=== PATIENT | male | born 1965 | race Caucasian/White ===

== ENCOUNTER 2017-07-31 21:20 | Emergency (ER) | payer BC ==
--- NOTE | 2017-07-31 21:10 | EDM.PDOC ---
ED HPI GENERAL MEDICAL PROBLEM - General Stated Complaint: BY AMBULANCE, GENERAL Time Seen by Provider: 07/31/17 21:08 Source of Information: Reports: Family History Limitations: Reports: Altered Mental Status - History of Present Illness INITIAL COMMENTS - FREE TEXT/NARRATIVE: sister states pt was fine @ 3pm today, just checked him for dinner & found him unresponsive. was d/c from [facility] last for liver failure and pending transplant. had abd' tapped there. also gives h/o K @ 6.9 and also needed blood transfusion. - Related Data Allergies Allergy/AdvReac Type Severity Reaction Status Date / Time No Known Allergies Allergy Verified 07/31/17 21:53 Home Meds: Home Meds Insulin Aspart [NovoLOG] 180 unit SQ ASDIRECTED 01/23/16 [History] Furosemide [Furosemide] 40 mg PO DAILY 12/11/16 [History] Insulin Aspart [NovoLOG] 4 units SUBCUT ASDIRECTED 12/11/16 [History] Spironolactone [Aldactone] 25 mg PO DAILY 12/11/16 [History] Past Medical History Cardiovascular History: Reports: Heart Failure, High Cholesterol, Hypertension Gastrointestinal History: Reports: Cirrhosis (non-alcoholic) Other Gastrointestinal History: ascites Musculoskeletal History: Reports: Fracture Endocrine/Metabolic History: Reports: Diabetes, Type II, Obesity/BMI 30+ - Infectious Disease History Infectious Disease History: Reports: Chicken Pox - Past Surgical History HEENT Surgical History: Reports: Tonsillectomy Other GI Surgeries/Procedures: paracentesis Social & Family History - Family History Family Medical History: Noncontributory - Tobacco Use Smoking Status *Q: Never Smoker Second Hand Smoke Exposure: No - Caffeine Use Caffeine Use: Reports: None - Alcohol Use Days Per Week of Alcohol Use: 3 Number of Drinks Per Day: 3 Total Drinks Per Week: 9 - Recreational Drug Use Recreational Drug Use: No - Living Situation & Occupation Living situation: Reports: Occupation: Employed ED ROS GENERAL - Review of Systems Review Of Systems: ROS reveals no pertinent complaints other than HPI. - Physical Exam Exam: See Below Exam Limited By: Altered Mental Status General Appearance: Other (unresponsive but jerked his head away with corneal stimulation) Eye Exam: Bilateral Eye: PERRL (pupils ess ER @ 4mm) Ears: Normal External Exam, Normal Canal Throat/Mouth: No Airway Compromise Head Exam: Atraumatic Neck: Non-Tender, Full Range of Motion Respiratory/Chest: No Respiratory Distress, Lungs Clear, Normal Breath Sounds Cardiovascular: Regular Rate, Rhythm GI/Abdominal: No: Mass Neuro Exam (Abbreviated): Unresponsive Psychiatric: Other (unresponsive) Skin Exam: Warm, Dry, Normal Color Course - Vital Signs Last Recorded V/S: Last Vital Signs Temp 36.6 C 07/31/17 21:08 Pulse 81 07/31/17 21:08 Resp 16 07/31/17 21:08 BP 134/36 L 07/31/17 21:08 Pulse Ox 98 07/31/17 21:08 - Orders/Labs/Meds Labs: Laboratory Tests 07/31/17 07/31/17 07/31/17 Range/Units 21:20 21:20 21:20 WBC 6.9 (5.0-10.0) 10^3/uL RBC 2.00 L (4.6-6.2) 10^6/uL Hgb 6.3 L* (14.0-18.0) g/dL Hct 19.1 L* (40.0-54.0) % MCV 95.5 (80-100) fL MCH 31.5 (27.0-34.0) pg MCHC 33.0 (33.0-35.0) g/dL Plt Count 9 L* (150-450) 10^3/uL Neut % (Auto) 63.8 (42.2-75.2) % Lymph % (Auto) 21.8 (20.5-50.1) % Price % (Auto) 11.7 H (2-8) % Eos % (Auto) 2.6 (1.0-3.0) % Baso % (Auto) 0.1 (0.0-1.0) % Sodium 130 L (135-145) mmol/L Potassium 5.9 H (3.6-5.0) mmol/L Chloride 102 (101-111) mmol/L Carbon Dioxide 19.0 L (21.0-31.0) mmol/L Anion Gap 14.9 BUN 42 H (7-18) mg/dL Creatinine 1.5 H (0.6-1.3) mg/dL Est Cr Clr Drug Dosing 63.95 mL/min Estimated GFR (MDRD) 49 BUN/Creatinine Ratio 28.00 Glucose 105 (74-105) mg/dL Calcium 8.0 L (8.4-10.2) mg/dl Total Bilirubin 1.2 H (0.2-1.0) mg/dL AST 33 (10-42) IU/L ALT 24 (10-60) IU/L Alkaline Phosphatase 57 (42-121) IU/L Ammonia 334 H (11-35) umol/L Total Protein 5.6 L (6.7-8.2) g/dl Albumin 2.3 L (3.2-5.5) g/dl Globulin 3.3 Albumin/Globulin Ratio 0.70 - Re-Assessments/Exams Free Text/Narrative Re-Assessment/Exam: 07/31/17 22:[address] Velez @ who kindly accepted pt. Departure - Departure Time of Disposition: 22:07 Disposition: DC/Tfer to Acute Hospital 02 Condition: Fair Clinical Impression: Hypokalemia, Hyponatremia, Hepatorenal syndrome, Hyperammonemia, Unresponsive state - Discharge Information Forms: Interfacility Transfer EMTALA
[2017-07-31 21:27] VITALS: BP 134/36
--- NOTE | 2017-08-04 11:04 | EKG ---
07/31/2017 - SHELBY VALE - This 12-lead EKG, shows a normal sinus rhythm with a ventricular rate of 79. Normal axis, first degree AV block. Low voltage is seen throughout the limb leads. Poor R-wave progression. No acute ST-T wave changes. [facility] /[id number]
== END 2017-07-31 22:37 ==
LOC: DL.ED 21:20
DX: E87.6 Hypokalemia (principal); E87.1 Hypo-osmolality and hyponatremia; K76.7 Hepatorenal syndrome; E72.4 Disorders of ornithine metabolism; I11.0 Hypertensive heart disease with heart failure; I50.9 Heart failure, unspecified; E78.00 Pure hypercholesterolemia, unspecified; E11.9 Type 2 diabetes mellitus without complications; E66.9 Obesity, unspecified; Z79.4 Long term (current) use of insulin; Z79.899 Other long term (current) drug therapy
CPT/HCPCS: 36415; 80053; 82140; 85025; 99285

== ENCOUNTER 2017-10-04 15:53 | Emergency (ER) | payer BC ==
[2017-10-04 17:09] VITALS: BP 126/59
--- NOTE | 2017-10-04 17:57 | EDM.PDOC ---
ED HPI GENERAL MEDICAL PROBLEM - General Chief Complaint: Neuro Symptoms/Deficits Stated Complaint: CONFUSED [id number](SON) Time Seen by Provider: 10/04/17 17:35 Source of Information: Reports: Patient, Family History Limitations: Reports: No Limitations - History of Present Illness INITIAL COMMENTS - FREE TEXT/NARRATIVE: Patient presents to ER with family with increased confusion. States he missed a dose of lactulose. Concerned with blood sugars wondering if insulin pump is working. No fever, chills, chest pain, shortness of breath, nausea or vomiting. He has diarrhea from lactulose. He also has a history of liver cancer Onset: Today Location: Reports: Other (confusion) Quality: Reports: Ache Severity: Moderate Improves with: Reports: None Worsens with: Reports: None Associated Symptoms: Reports: No Other Symptoms - Related Data Allergies Allergy/AdvReac Type Severity Reaction Status Date / Time No Known Allergies Allergy Verified 09/05/17 10:51 Home Meds: Home Meds Insulin Aspart [NovoLOG] 180 unit SQ ASDIRECTED 01/23/16 [History] Bumetanide [Bumex] 3 mg PO BID 09/05/17 [History] Ciprofloxacin [Ciprofloxacin HCl] 500 mg PO WITHLUNCH 09/05/17 [History] Lactulose 20 gm PO TID 09/05/17 [History] Midodrine 10 mg PO TIDMEALS 09/05/17 [History] Pantoprazole Sodium 40 mg PO BIDMEALS 09/05/17 [History] Rifaximin [Xifaxan] 550 mg PO BID 09/05/17 [History] Spironolactone [Aldactone] 25 mg PO DAILY 10/04/17 [History] Past Medical History HEENT History: Reports: Hard of Hearing Cardiovascular History: Reports: None Respiratory History: Reports: None Gastrointestinal History: Reports: Cirrhosis, GI Bleed, Hiatal Hernia Other Gastrointestinal History: ascites Genitourinary History: Reports: Acute Renal Failure, Chronic Renal Insuffiency Musculoskeletal History: Reports: Fracture Neurological History: Reports: Brain Injury, Neuropathy, Diabetic Psychiatric History: Reports: Other (See Below) Other Psychiatric History: gets confused at times Endocrine/Metabolic History: Reports: Diabetes, Type II, Obesity/BMI 30+ Hematologic History: Reports: Anemia, Blood Transfusion(s) Immunologic History: Reports: None Oncologic (Cancer) History: Reports: Liver Dermatologic History: Reports: None - Infectious Disease History Infectious Disease History: Reports: None - Past Surgical History HEENT Surgical History: Reports: Tonsillectomy Cardiovascular Surgical History: Reports: None Respiratory Surgical History: Reports: None GI Surgical History: Reports: Abdominal paracentesis Male Surgical History: Reports: None Endocrine Surgical History: Reports: None Neurological Surgical History: Reports: None Musculoskeletal Surgical History: Reports: None Oncologic Surgical History: Reports: None Other Oncologic Surgeries/Procedures: Ablation Dermatological Surgical History: Reports: None Social & Family History - Family History Family Medical History: Noncontributory - Tobacco Use Smoking Status *Q: Never Smoker Second Hand Smoke Exposure: No - Caffeine Use Caffeine Use: Reports: None - Alcohol Use Days Per Week of Alcohol Use: 3 Number of Drinks Per Day: 3 Total Drinks Per Week: 9 - Recreational Drug Use Recreational Drug Use: No - Living Situation & Occupation Living situation: Reports: Occupation: Employed ED ROS GENERAL - Review of Systems Review Of Systems: ROS reveals no pertinent complaints other than HPI. ED EXAM, NEURO - Physical Exam Exam: See Below Exam Limited By: No Limitations General Appearance: Alert, WD/WN, No Apparent Distress Eye Exam: Bilateral Eye: Normal Inspection Ears: Normal External Exam, Normal Canal, Hearing Grossly Normal, Normal TMs Nose: Normal Inspection, Normal Mucosa, No Blood Throat/Mouth: Normal Inspection, Normal Lips, Normal Teeth, Normal Gums, Normal Oropharynx, Normal Voice, No Airway Compromise Head Exam: Atraumatic, Normocephalic Neck: Normal Inspection, Supple, Non-Tender, Full Range of Motion Respiratory/Chest: No Respiratory Distress, Lungs Clear, Normal Breath Sounds, No Accessory Muscle Use, Chest Non-Tender Cardiovascular: Other (murmur) GI/Abdominal: Other (ascites) (Male) Exam: Deferred Rectal (Males) Exam: Deferred Neurological: Other (increased confusion.) Back Exam: Normal Inspection, Full Range of Motion, NT Extremities: Normal Inspection, Normal Range of Motion, Non-Tender, No Pedal Edema, Normal Capillary Refill Psychiatric: Normal Affect, Normal Mood Skin Exam: Warm, Dry, Intact, Normal Color, No Rash Course - Vital Signs Last Recorded V/S: Last Vital Signs Temp 97.4 F 10/04/17 17:07 Pulse 93 10/04/17 17:07 Resp 18 10/04/17 17:07 BP 126/59 L 10/04/17 17:07 Pulse Ox 100 10/04/17 17:07 - Orders/Labs/Meds Orders: Active Orders 24 hr Category Date Time Status Peripheral IV Care [RC] . DIRECTED Care 10/04/17 18:56 Active Pantoprazole [ProTONIX IV] 40 mg Med 10/04/17 18:57 Active Sodium Chloride 0.9% [Normal Saline] 100 ml IV .CONTINUOS Sodium Chloride 0.9% [Saline Flush] Med 10/04/17 18:56 Active 10 ml FLUSH ASDIRECTED PRN Peripheral IV Insertion Adult [OM.PC] Stat Oth 10/04/17 18:56 Ordered Medication Orders Pantoprazole Sodium 40 mg/ (Sodium Chloride) 100 mls @ 20 mls/hr IV .CONTINUOS JESSIE Sodium Chloride (Saline Flush) 10 ml FLUSH ASDIRECTED PRN PRN Reason: Keep Vein Open Labs: Laboratory Tests 10/04/17 10/04/17 10/04/17 Range/Units 17:17 17:36 17:36 WBC 4.8 L (5.0-10.0) 10^3/uL RBC 2.23 L (4.6-6.2) 10^6/uL Hgb 7.2 L (14.0-18.0) g/dL Hct 22.1 L (40.0-54.0) % MCV 99.1 D (80-100) fL MCH 32.3 (27.0-34.0) pg MCHC 32.6 L (33.0-35.0) g/dL Plt Count 66 L (150-450) 10^3/uL Neut % (Auto) 61.0 (42.2-75.2) % Lymph % (Auto) 22.7 (20.5-50.1) % [place] % (Auto) 14.4 H (2-8) % Eos % (Auto) 1.5 (1.0-3.0) % Baso % (Auto) 0.4 (0.0-1.0) % Add Manual Diff Yes Neutrophils % (Manual) 69 (42-75) % Band Neutrophils % 1 % Lymphocytes % (Manual) 20 (20-50) % Atypical Lymphs % 1 % Monocytes % (Manual) 8 (2-8) % Eosinophils % (Manual) 1 (1-3) % Ovalocytes 1+ slight Sodium 131 L (135-145) mmol/L Potassium 4.4 D (3.6-5.0) mmol/L Chloride 91 L (101-111) mmol/L Carbon Dioxide 28.0 (21.0-31.0) mmol/L Anion Gap 16.4 BUN 67 H D (7-18) mg/dL Creatinine 2.5 H (0.6-1.3) mg/dL Est Cr Clr Drug Dosing 29.27 mL/min Estimated GFR (MDRD) 27 BUN/Creatinine Ratio 26.80 Glucose 303 H (74-105) mg/dL POC Glucose 294 H (70-105) mg/dl Calcium 8.8 (8.4-10.2) mg/dl Total Bilirubin 2.1 H (0.2-1.0) mg/dL AST 34 (10-42) IU/L ALT 17 (10-60) IU/L Alkaline Phosphatase 71 (42-121) IU/L Ammonia (11-35) umol/L Total Protein 7.3 (6.7-8.2) g/dl Albumin 2.8 L (3.2-5.5) g/dl Globulin 4.5 Albumin/Globulin Ratio 0.62 10/04/ Range/Units 17:36 WBC (5.0-10.0) 10^3/uL RBC (4.6-6.2) 10^6/uL Hgb (14.0-18.0) g/dL Hct (40.0-54.0) % MCV (80-100) fL MCH (27.0-34.0) pg MCHC (33.0-35.0) g/dL Plt Count (150-450) 10^3/uL Neut % (Auto) (42.2-75.2) % Lymph % (Auto) (20.5-50.1) % [place] % (Auto) (2-8) % Eos % (Auto) (1.0-3.0) % Baso % (Auto) (0.0-1.0) % Add Manual Diff Neutrophils % (Manual) (42-75) % Band Neutrophils % % Lymphocytes % (Manual) (20-50) % Atypical Lymphs % % Monocytes % (Manual) (2-8) % Eosinophils % (Manual) (1-3) % Ovalocytes Sodium (135-145) mmol/L Potassium (3.6-5.0) mmol/L Chloride (101-111) mmol/L Carbon Dioxide (21.0-31.0) mmol/L Anion Gap BUN (7-18) mg/dL Creatinine (0.6-1.3) mg/dL Est Cr Clr Drug Dosing mL/min Estimated GFR (MDRD) BUN/Creatinine Ratio Glucose (74-105) mg/dL POC Glucose (70-105) mg/dl Calcium (8.4-10.2) mg/dl Total Bilirubin (0.2-1.0) mg/dL AST (10-42) IU/L ALT (10-60) IU/L Alkaline Phosphatase (42-121) IU/L Ammonia 29 (11-35) umol/L Total Protein (6.7-8.2) g/dl Albumin (3.2-5.5) g/dl Globulin Albumin/Globulin Ratio Meds: Medications Generic Name Dose Route Start Last Admin Trade Name Freq PRN Reason Stop Dose Admin Pantoprazole Sodium 40 mg/ 100 mls @ 20 mls/hr 10/04/17 18:57 Sodium Chloride IV .CONTINUOS JESSIE Sodium Chloride 10 ml 10/04/17 18:56 Saline Flush FLUSH ASDIRECTED PRN Keep Vein Open Discontinued Medications Generic Name Dose Route Start Last Admin Trade Name Freq PRN Reason Stop Dose Admin Pantoprazole Sodium 80 mg 10/04/17 18:56 Protonix Iv IVPUSH 10/04/17 18:57 .BOLUS ONE Departure - Departure Time of Disposition: 19:13 Disposition: DC/Tfer to Acute Hospital 02 Condition: Fair Clinical Impression: Guaiac positive stools Liver cancer Qualifiers: Liver malignancy type: unspecified primary liver malignancy Qualified Code(s): C22.8 - Malignant neoplasm of liver, primary, unspecified as to type - Discharge Information Forms: ED Department Discharge, Interfacility Transfer EMTALA - My Orders Last 24 Hours: My Active Orders 10/04/17 18:56 Peripheral IV Care [RC] . DIRECTED Sodium Chloride 0.9% [Saline Flush] 10 ml FLUSH ASDIRECTED PRN Peripheral IV Insertion Adult [OM.PC] Stat 10/04/17 18:57 Pantoprazole [ProTONIX IV] 40 mg Sodium Chloride 0.9% [Normal Saline] 100 ml IV .CONTINUOS - Assessment/Plan Last 24 Hours: My Active Orders 10/04/17 18:56 Peripheral IV Care [RC] . DIRECTED Sodium Chloride 0.9% [Saline Flush] 10 ml FLUSH ASDIRECTED PRN Peripheral IV Insertion Adult [OM.PC] Stat 10/04/17 18:57 Pantoprazole [ProTONIX IV] 40 mg Sodium Chloride 0.9% [Normal Saline] 100 ml IV .CONTINUOS
[2017-10-04] MEDS ORDERED: Pantoprazole 40 MG Vial IVPUSH ONE (18:56)
[2017-10-04] MEDS ORDERED: Pantoprazole 40 MG in Sodium Chloride 0.9% 100 ML IV SCH (18:57)
[2017-10-04] MEDS: Sodium Chloride 0.9% 10 ML Syringe FLUSH PRN ×2 (19:36→19:44)
== END 2017-10-04 20:00 ==
LOC: DL.ED 15:53
DX: R19.5 Other fecal abnormalities (principal); C22.8 Malignant neoplasm of liver, primary, unspecified as to type; Z79.899 Other long term (current) drug therapy; Z79.4 Long term (current) use of insulin
CPT/HCPCS: 36415; 80053; 82140; 82272; 82962; 85025; 96374; 96376; 99284; C9113; J7050

== ENCOUNTER 2017-10-12 04:09 | Emergency (ER) | payer BC ==
[2017-10-12 04:15] VITALS: BP 105/29
[2017-10-12] MEDS ORDERED: Sodium Chloride 0.9% 1,000 ML IV SCH (04:30)
--- NOTE | 2017-10-12 04:30 | EDM.PDOC ---
ED HPI GENERAL MEDICAL PROBLEM - General Chief Complaint: Neurological Problem Stated Complaint: CONFUSION Time Seen by Provider: 10/12/17 04:24 Source of Information: Reports: Patient, Family History Limitations: Reports: No Limitations - History of Present Illness INITIAL COMMENTS - FREE TEXT/NARRATIVE: 52 yo white male w/ Liver cancer, stage 4 CKD and anemia brought in by son for Fever, Confusion and Epigastric Abdomen pain that began @ 1AM. Pt. transfused one unit of blood Saturday and recent had procedure to stop gastric bleeding Onset: Today Onset Date: 10/12/17 Onset Time: 01:00 Duration: Hour(s): Location: Reports: Abdomen, Generalized (confusion and fever) Quality: Reports: Ache Severity: Moderate Worsens with: Reports: None Context: Reports: Other (PHMx.) Epigastric Pain Score (Numeric/FACES): 3 - Related Data Allergies Allergy/AdvReac Type Severity Reaction Status Date / Time No Known Allergies Allergy Verified 09/05/17 10:51 Home Meds: Home Meds Insulin Aspart [NovoLOG] 180 unit SQ ASDIRECTED 01/23/16 [History] Bumetanide [Bumex] 3 mg PO BID 09/05/17 [History] Ciprofloxacin [Ciprofloxacin HCl] 500 mg PO WITHLUNCH 09/05/17 [History] Lactulose 20 gm PO TID 09/05/17 [History] Midodrine 10 mg PO TIDMEALS 09/05/17 [History] Pantoprazole Sodium 40 mg PO BIDMEALS 09/05/17 [History] Rifaximin [Xifaxan] 550 mg PO BID 09/05/17 [History] Spironolactone [Aldactone] 25 mg PO DAILY 10/04/17 [History] Past Medical History HEENT History: Reports: Hard of Hearing Cardiovascular History: Reports: None Respiratory History: Reports: None Gastrointestinal History: Reports: Cirrhosis, GI Bleed, Hiatal Hernia Other Gastrointestinal History: ascites Genitourinary History: Reports: Acute Renal Failure, Chronic Renal Insuffiency Musculoskeletal History: Reports: Fracture Neurological History: Reports: Brain Injury, Neuropathy, Diabetic Psychiatric History: Reports: Other (See Below) Other Psychiatric History: gets confused at times Endocrine/Metabolic History: Reports: Diabetes, Type II, Obesity/BMI 30+ Hematologic History: Reports: Anemia, Blood Transfusion(s) Immunologic History: Reports: None Oncologic (Cancer) History: Reports: Liver Dermatologic History: Reports: None - Infectious Disease History Infectious Disease History: Reports: None - Past Surgical History HEENT Surgical History: Reports: Tonsillectomy Cardiovascular Surgical History: Reports: None Respiratory Surgical History: Reports: None GI Surgical History: Reports: Abdominal paracentesis Male Surgical History: Reports: None Endocrine Surgical History: Reports: None Neurological Surgical History: Reports: None Musculoskeletal Surgical History: Reports: None Oncologic Surgical History: Reports: None Other Oncologic Surgeries/Procedures: Ablation Dermatological Surgical History: Reports: None Social & Family History - Family History Family Medical History: Noncontributory - Tobacco Use Smoking Status *Q: Never Smoker Second Hand Smoke Exposure: No - Caffeine Use Caffeine Use: Reports: None - Alcohol Use Days Per Week of Alcohol Use: 3 Number of Drinks Per Day: 3 Total Drinks Per Week: 9 - Recreational Drug Use Recreational Drug Use: No - Living Situation & Occupation Living situation: Reports: Occupation: Employed ED ROS GENERAL - Review of Systems Review Of Systems: See Below Constitutional: Reports: No Symptoms HEENT: Reports: No Symptoms Respiratory: Reports: No Symptoms Cardiovascular: Reports: No Symptoms Endocrine: Reports: No Symptoms GI/Abdominal: Reports: Abdominal Pain (epigastric) : Reports: No Symptoms Musculoskeletal: Reports: No Symptoms Skin: Reports: No Symptoms Neurological: Reports: Confusion Psychiatric: Reports: No Symptoms Hematologic/Lymphatic: Reports: No Symptoms Immunologic: Reports: No Symptoms ED EXAM, GENERAL - Physical Exam Exam: See Below Exam Limited By: No Limitations General Appearance: Alert, No Apparent Distress, Obese Eye Exam: Bilateral Eye: EOMI, PERRL Ears: Normal External Exam Nose: Normal Inspection Throat/Mouth: Normal Inspection, Normal Lips Head: Atraumatic, Normocephalic Neck: Normal Inspection, Supple Respiratory/Chest: No Respiratory Distress, Lungs Clear, Normal Breath Sounds, No Accessory Muscle Use Cardiovascular: Normal Peripheral Pulses, Regular Rate, Rhythm Peripheral Pulses: 2+: Radial (L), Radial (R) GI/Abdominal: Soft, No Organomegaly, Distended, Tender (epigastric), Abnormal Bowel Sounds (decreased) Back Exam: Normal Inspection Extremities: Normal Inspection, Normal Range of Motion Neurological: Alert, Confused, Disoriented, Slow to Respond Psychiatric: Normal Affect Skin Exam: Warm, Dry, Intact Lymphatic: No Adenopathy Course - Vital Signs Last Recorded V/S: Last Vital Signs Temp 35.9 C 10/12/17 04:13 Pulse 79 10/12/17 04:13 Resp 22 H 10/12/17 04:13 BP 105/29 L 10/12/17 04:13 Pulse Ox 100 10/12/17 04:13 - Orders/Labs/Meds Orders: Active Orders 24 hr Category Date Time Status EKG Documentation Completion [RC] STAT Care 10/12/17 04:27 Active Chest 2V [CR] Urgent Exams 10/12/17 04:34 Ordered CULTURE BLOOD [BC] Stat Lab 10/12/17 04:22 Results CULTURE BLOOD [BC] Stat Lab 10/12/17 04:30 Received INR,PT,PROTHROMBIN TIME [COAG] Stat Lab 10/12/17 04:22 Received LACTIC ACID [CHEM] Stat Lab 10/12/17 04:22 Received PTT,PARTIAL THROMBOPLSTIN TIME [COAG] Stat Lab 10/12/17 04:22 Received TYPE AND SCREEN [BBK] Stat Lab 10/12/17 04:22 Received URINALYSIS W/MICROSCOPIC [UA W/MICROSCOPIC] [URIN] Stat Lab 10/12/17 04:30 Uncollected Sodium Chloride 0.9% [Normal Saline] 1,000 ml Med 10/12/17 04:30 Active IV ASDIRECTED Medication Orders Sodium Chloride (Normal Saline) 1,000 mls @ 100 mls/hr IV ASDIRECTED JESSIE Last Admin: 10/12/17 04:32 Dose: 100 mls/hr Labs: Laboratory Tests 10/12/17 10/12/17 10/12/17 Range/Units 04:22 04:22 04:22 WBC 5.2 (5.0-10.0) 10^3/uL RBC 2.29 L (4.6-6.2) 10^6/uL Hgb 7.2 L (14.0-18.0) g/dL Hct 22.2 L (40.0-54.0) % MCV 96.9 (80-100) fL MCH 31.4 (27.0-34.0) pg MCHC 32.4 L (33.0-35.0) g/dL Plt Count 73 L (150-450) 10^3/uL Neut % (Auto) 67.0 (42.2-75.2) % Lymph % (Auto) 15.7 L (20.5-50.1) % [place] % (Auto) 14.6 H (2-8) % Eos % (Auto) 2.5 (1.0-3.0) % Baso % (Auto) 0.2 (0.0-1.0) % Sodium 129 L (135-145) mmol/L Potassium 3.4 L (3.6-5.0) mmol/L Chloride 93 L (101-111) mmol/L Carbon Dioxide 25.0 (21.0-31.0) mmol/L Anion Gap 14.4 BUN 60 H (7-18) mg/dL Creatinine 1.9 H (0.6-1.3) mg/dL Est Cr Clr Drug Dosing TNP Estimated GFR (MDRD) 38 BUN/Creatinine Ratio 31.57 Glucose 38 L* (74-105) mg/dL Calcium 8.6 (8.4-10.2) mg/dl Total Bilirubin 2.1 H (0.2-1.0) mg/dL AST 39 (10-42) IU/L ALT 16 (10-60) IU/L Alkaline Phosphatase 60 (42-121) IU/L Ammonia 18 (11-35) umol/L Troponin I (0.00-0.02) ng/ml Total Protein 7.7 (6.7-8.2) g/dl Albumin 2.9 L (3.2-5.5) g/dl Globulin 4.8 Albumin/Globulin Ratio 0.60 11/11/17 Range/Units 04:22 WBC (5.0-10.0) 10^3/uL RBC (4.6-6.2) 10^6/uL Hgb (14.0-18.0) g/dL Hct (40.0-54.0) % MCV (80-100) fL MCH (27.0-34.0) pg MCHC (33.0-35.0) g/dL Plt Count (150-450) 10^3/uL Neut % (Auto) (42.2-75.2) % Lymph % (Auto) (20.5-50.1) % [place] % (Auto) (2-8) % Eos % (Auto) (1.0-3.0) % Baso % (Auto) (0.0-1.0) % Sodium (135-145) mmol/L Potassium (3.6-5.0) mmol/L Chloride (101-111) mmol/L Carbon Dioxide (21.0-31.0) mmol/L Anion Gap BUN (7-18) mg/dL Creatinine (0.6-1.3) mg/dL Est Cr Clr Drug Dosing Estimated GFR (MDRD) BUN/Creatinine Ratio Glucose (74-105) mg/dL Calcium (8.4-10.2) mg/dl Total Bilirubin (0.2-1.0) mg/dL AST (10-42) IU/L ALT (10-60) IU/L Alkaline Phosphatase (42-121) IU/L Ammonia (11-35) umol/L Troponin I 0.04 H* (0.00-0.02) ng/ml Total Protein (6.7-8.2) g/dl Albumin (3.2-5.5) g/dl Globulin Albumin/Globulin Ratio Meds: Medications Generic Name Dose Route Start Last Admin Trade Name Freq PRN Reason Stop Dose Admin Sodium Chloride 1,000 mls @ 100 mls/hr 10/12/17 04:30 10/12/17 04:32 Normal Saline IV 100 mls/hr ASDIRECTED JESSIE Administration Discontinued Medications Generic Name Dose Route Start Last Admin Trade Name Freq PRN Reason Stop Dose Admin Al Hydroxide/Mg Hydroxide 30 ml 10/12/17 04:32 10/12/17 04:41 Gi Cocktail PO 10/12/17 04:33 30 ml ONETIME ONE Administration Departure - Departure Time of Disposition: 05:43 Disposition: DC/Tfer to Acute Hospital 02 Condition: Fair Clinical Impression: Hypoglycemia, CKD (chronic kidney disease) stage 4, GFR 15-29 ml/min, Hyponatremia, Thrombocytopenia, Elevated troponin Anemia Qualifiers: Anemia type: other cause Other causes of anemia: chronic disease, other Qualified Code(s): D63.8 - Anemia in other chronic diseases classified elsewhere - Discharge Information Forms: ED Department Discharge, Interfacility Transfer EMTALA - My Orders Last 24 Hours: My Active Orders 10/12/17 04:22 CULTURE BLOOD [BC] Stat INR,PT,PROTHROMBIN TIME [COAG] Stat LACTIC ACID [CHEM] Stat PTT,PARTIAL THROMBOPLSTIN TIME [COAG] Stat TYPE AND SCREEN [BBK] Stat 10/12/17 04:27 EKG Documentation Completion [RC] STAT 10/12/17 04:30 CULTURE BLOOD [BC] Stat URINALYSIS W/MICROSCOPIC [UA W/MICROSCOPIC] [URIN] Stat Sodium Chloride 0.9% [Normal Saline] 1,000 ml IV ASDIRECTED 10/12/17 04:34 Chest 2V [CR] Urgent - Assessment/Plan Last 24 Hours: My Active Orders 10/12/17 04:22 CULTURE BLOOD [BC] Stat INR,PT,PROTHROMBIN TIME [COAG] Stat LACTIC ACID [CHEM] Stat PTT,PARTIAL THROMBOPLSTIN TIME [COAG] Stat TYPE AND SCREEN [BBK] Stat 10/12/17 04:27 EKG Documentation Completion [RC] STAT 10/12/17 04:30 CULTURE BLOOD [BC] Stat URINALYSIS W/MICROSCOPIC [UA W/MICROSCOPIC] [URIN] Stat Sodium Chloride 0.9% [Normal Saline] 1,000 ml IV ASDIRECTED 10/12/17 04:34 Chest 2V [CR] Urgent
[2017-10-12] MEDS ORDERED: GI Cocktail Oral Solution 30 ML PO ONE (04:32)
[2017-10-12 05:19] LABS: CHLORIDE,CL 93 mmol/L (101-111); SODIUM,NA 129 mmol/L (135-145)
--- NOTE | 2017-10-15 20:31 | EKG ---
10/12/2017 - SHELBY VALE - FINDINGS: I reviewed the EKG, and agree with the machine's reading. [facility] /[id number]
== END 2017-10-12 06:25 ==
LOC: EEVIPCON 04:09 → DL.ED 04:09
DX: E11.649 Type 2 diabetes mellitus with hypoglycemia without coma (principal); E11.22 Type 2 diabetes mellitus with diabetic chronic kidney disease; N18.4 Chronic kidney disease, stage 4 (severe); E87.1 Hypo-osmolality and hyponatremia; D69.6 Thrombocytopenia, unspecified; D63.8 Anemia in other chronic diseases classified elsewhere; C22.9 Malignant neoplasm of liver, not specified as primary or secondary; Z79.4 Long term (current) use of insulin; Z79.899 Other long term (current) drug therapy
CPT/HCPCS: 36415; 71020; 80053; 82140; 82962; 83605; 84484; 85025; 85610; 85730; 86850; 86900; 86901; 87040; 93005; 96360; 96361; 99285; A9270; J7030

== ENCOUNTER 2017-11-15 01:44 | Emergency (ER) | payer BC ==
[2017-11-15 01:49] VITALS: BP 154/39
[2017-11-15 02:22] LABS: CHLORIDE,CL 93 mmol/L (101-111); SODIUM,NA 129 mmol/L (135-145)
[2017-11-15] MEDS ORDERED: Metoclopramide 10 MG/2 ML SDV IVPUSH ONE (02:32)
[2017-11-15] MEDS ORDERED: Pantoprazole 40 MG Vial IVPUSH ONE (02:58)
--- NOTE | 2017-11-15 03:11 | EDM.PDOC ---
ED HPI GENERAL MEDICAL PROBLEM - General Chief Complaint: Neurological Problem Stated Complaint: IN BY AMBULANCE Time Seen by Provider: 11/15/17 01:45 Source of Information: Reports: Family History Limitations: Reports: No Limitations - History of Present Illness INITIAL COMMENTS - FREE TEXT/NARRATIVE: ED via [facility] with family who report patient vomiting x1 liquid, no obvious blood tonight and more tired. Recent blood transfusion on 11/13. Patient has hx liver CA, CKD prior intracranial hemorrhage, GI bleeds and periodic cautery of gastric ulcerations. Patient has been able to continue to work in [employer] business. - Related Data Allergies Allergy/AdvReac Type Severity Reaction Status Date / Time No Known Allergies Allergy Verified 11/08/17 08:53 Home Meds: Home Meds Insulin Aspart [NovoLOG] 180 unit SQ ASDIRECTED 01/23/16 [History] Bumetanide [Bumex] 2 mg PO BID 09/05/17 [History] Lactulose 20 gm PO BID 09/05/17 [History] Midodrine 10 mg PO TIDMEALS 09/05/17 [History] Rifaximin [Xifaxan] 550 mg PO BID 09/05/17 [History] Spironolactone [Aldactone] 25 mg PO .QOD 10/04/17 [History] Glucagon,Human Recombinant [Glucagen] 1 mg SQ ASDIRECTED PRN 11/15/17 [History] Pantoprazole Sodium [Pantoprazole Sodium] 40 mg PO BID 11/15/17 [History] hydrOXYzine HCl [Atarax] 25 mg PO BEDTIME 11/15/17 [History] oxyCODONE 5 mg PO ASDIRECTED PRN 11/15/17 [History] Past Medical History HEENT History: Reports: Hard of Hearing Other HEENT History: seasonal allergies Cardiovascular History: Reports: High Cholesterol, Hypertension Respiratory History: Reports: None Other Respiratory History: lung nodule, ARF w/hypoxia and hypercapnia Gastrointestinal History: Reports: Cirrhosis, GI Bleed, Hiatal Hernia Other Gastrointestinal History: ascites, anasarca Genitourinary History: Reports: Acute Renal Failure, Chronic Renal Insuffiency Other Genitourinary History: dehydration, GI bleed, portal hypertensive gastropathy Musculoskeletal History: Reports: Fracture Neurological History: Reports: Brain Injury, Neuropathy, Diabetic Other Neuro History: encephalopathy Psychiatric History: Reports: Other (See Below) Other Psychiatric History: gets confused at times Endocrine/Metabolic History: Reports: Diabetes, Type II, Obesity/BMI 30+ Hematologic History: Reports: Anemia, Blood Transfusion(s) Other Hematologic History: hyperkalemia, hyponatremia, thrombocytopenia, hyperammonemia Immunologic History: Reports: None Other Immunologic History: fatty liver Oncologic (Cancer) History: Reports: Liver Dermatologic History: Reports: None Other Dermatologic History: eschar of heel - Infectious Disease History Infectious Disease History: Reports: VRE - Past Surgical History HEENT Surgical History: Reports: Tonsillectomy Cardiovascular Surgical History: Reports: None Respiratory Surgical History: Reports: None GI Surgical History: Reports: Abdominal paracentesis Male Surgical History: Reports: None Endocrine Surgical History: Reports: None Neurological Surgical History: Reports: None Musculoskeletal Surgical History: Reports: Carpal Tunnel Oncologic Surgical History: Reports: None Other Oncologic Surgeries/Procedures: Ablation Dermatological Surgical History: Reports: None Social & Family History - Family History Family Medical History: Noncontributory - Tobacco Use Smoking Status *Q: Never Smoker Second Hand Smoke Exposure: No - Caffeine Use Caffeine Use: Reports: None - Alcohol Use Days Per Week of Alcohol Use: 3 Number of Drinks Per Day: 3 Total Drinks Per Week: 9 - Recreational Drug Use Recreational Drug Use: No - Living Situation & Occupation Living situation: Reports: Occupation: Employed ED ROS GENERAL - Review of Systems Review Of Systems: See Below (obtained from family) Constitutional: Reports: Weakness, Fatigue HEENT: Reports: No Symptoms Respiratory: Reports: No Symptoms. Denies: Shortness of Breath, Cough Cardiovascular: Reports: Blood Pressure Problem (usually low), Edema (improved) Endocrine: Reports: Fatigue, High Glucose GI/Abdominal: Reports: Black Stool. Denies: Abdominal Pain Musculoskeletal: Reports: No Symptoms Skin: Reports: No Symptoms Neurological: Reports: Headache Hematologic/Lymphatic: Reports: Anemia - Physical Exam Exam: See Below Exam Limited By: No Limitations General Appearance: Lethargic Eye Exam: Bilateral Eye: EOMI, PERRL (5mm) Ears: Normal External Exam, Normal TMs Nose: Normal Inspection Throat/Mouth: Normal Inspection Head Exam: Atraumatic, Normocephalic Neck: Normal Inspection, Full Range of Motion Respiratory/Chest: Decreased Breath Sounds (greateron left, poor effort) Cardiovascular: Regular Rate, Rhythm GI/Abdominal: Normal Bowel Sounds, Soft Rectal (Males) Exam: Normal Rectal Tone, Heme + Stool Neuro Exam (Abbreviated): Slow to Respond Back Exam: Normal Inspection Extremities: No Pedal Edema (1+) Skin Exam: Warm, Dry, No Rash, Jaundice Course - Vital Signs Last Recorded V/S: Last Vital Signs Temp 98.3 F 11/15/17 01:44 Pulse 93 11/15/17 01:44 Resp 18 11/15/17 01:44 BP 154/39 H 11/15/17 01:44 Pulse Ox 99 11/15/17 01:44 - Orders/Labs/Meds Labs: Laboratory Tests 11/15/17 11/15/17 11/15/17 Range/Units 01:55 01:55 01:55 WBC 6.0 (5.0-10.0) 10^3/uL RBC 2.15 L (4.6-6.2) 10^6/uL Hgb 7.0 L (14.0-18.0) g/dL Hct 20.8 L* (40.0-54.0) % MCV 96.7 (80-100) fL MCH 32.6 (27.0-34.0) pg MCHC 33.7 (33.0-35.0) g/dL Plt Count 92 L (150-450) 10^3/uL Neut % (Auto) 67.0 (42.2-75.2) % Lymph % (Auto) 15.5 L (20.5-50.1) % [place] % (Auto) 15.5 H (2-8) % Eos % (Auto) 1.8 (1.0-3.0) % Baso % (Auto) 0.2 (0.0-1.0) % PT 11.1 (9.0-12.0) SEC INR 1.1 (0.9-1.2) Sodium 129 L (135-145) mmol/L Potassium 5.3 H D (3.6-5.0) mmol/L Chloride 93 L (101-111) mmol/L Carbon Dioxide 30.0 (21.0-31.0) mmol/L Anion Gap 11.3 BUN 74 H (7-18) mg/dL Creatinine 2.3 H (0.6-1.3) mg/dL Est Cr Clr Drug Dosing TNP Estimated GFR (MDRD) 30 BUN/Creatinine Ratio 32.17 Glucose 188 H (74-105) mg/dL Lactic Acid (0.5-2.2) mmol/L Calcium 9.0 (8.4-10.2) mg/dl Total Bilirubin 1.8 H (0.2-1.0) mg/dL AST 56 H (10-42) IU/L ALT 36 (10-60) IU/L Alkaline Phosphatase 96 (42-121) IU/L Ammonia (11-35) umol/L Total Protein 7.4 (6.7-8.2) g/dl Albumin 3.0 L (3.2-5.5) g/dl Globulin 4.4 Albumin/Globulin Ratio 0.68 Amylase 90 (28-100) U/L Lipase 50 (22-51) U/L Blood Type Gel Antibody Screen 11/15/17 11/15/17 11/15/17 Range/Units 01:55 01:55 01:55 WBC (5.0-10.0) 10^3/uL RBC (4.6-6.2) 10^6/uL Hgb (14.0-18.0) g/dL Hct (40.0-54.0) % MCV (80-100) fL MCH (27.0-34.0) pg MCHC (33.0-35.0) g/dL Plt Count (150-450) 10^3/uL Neut % (Auto) (42.2-75.2) % Lymph % (Auto) (20.5-50.1) % [place] % (Auto) (2-8) % Eos % (Auto) (1.0-3.0) % Baso % (Auto) (0.0-1.0) % PT (9.0-12.0) SEC INR (0.9-1.2) Sodium (135-145) mmol/L Potassium (3.6-5.0) mmol/L Chloride (101-111) mmol/L Carbon Dioxide (21.0-31.0) mmol/L Anion Gap BUN (7-18) mg/dL Creatinine (0.6-1.3) mg/dL Est Cr Clr Drug Dosing Estimated GFR (MDRD) BUN/Creatinine Ratio Glucose (74-105) mg/dL Lactic Acid 3.0 H (0.5-2.2) mmol/L Calcium (8.4-10.2) mg/dl Total Bilirubin (0.2-1.0) mg/dL AST (10-42) IU/L ALT (10-60) IU/L Alkaline Phosphatase (42-121) IU/L Ammonia 185 H (11-35) umol/L Total Protein (6.7-8.2) g/dl Albumin (3.2-5.5) g/dl Globulin Albumin/Globulin Ratio Amylase (28-100) U/L Lipase (22-51) U/L Blood Type A POSITIVE Gel Antibody Screen Negative Meds: Medications Discontinued Medications Generic Name Dose Route Start Last Admin Trade Name Freq PRN Reason Stop Dose Admin Metoclopramide HCl 10 mg 11/15/17 02:32 11/15/17 02:36 Reglan IVPUSH 11/15/17 02:33 10 mg ONETIME ONE Administration Pantoprazole Sodium 40 mg 11/15/17 02:58 11/15/17 03:06 Protonix Iv IVPUSH 11/15/17 02:59 40 mg ONETIME ONE Administration - Radiology Interpretation Free Text/Narrative:: CXR, Left pleural effusion CT head no acute process - Re-Assessments/Exams Free Text/Narrative Re-Assessment/Exam: 11/15/17 03:18 Dr Jimenez accepting of patient, GI bleed, elevated pneumonia, altered mental status. 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 Qualified Code(s): E11.8 - Type 2 diabetes mellitus with unspecified complications Edema Qualifiers: Edema type: generalized Qualified Code(s): R60.1 - Generalized edema GI bleed Qualifiers: GI bleed type/associated pathology: unspecified gastrointestinal hemorrhage type Qualified Code(s): K92.2 - Gastrointestinal hemorrhage, unspecified Liver cancer Qualifiers: Liver malignancy type: unspecified primary liver malignancy Qualified Code(s): C22.8 - Malignant neoplasm of liver, primary, unspecified as to type - Discharge Information Referrals: PCP,Unobtain [Primary Care Provider] - Forms: ED Department Discharge
--- NOTE | 2017-11-15 11:30 | EKG ---
11/15/2017 - SHELBY VALE - FINDINGS: I reviewed the EKG and agree with the machine's reading. [facility] /[id number]
== END 2017-11-15 03:24 ==
LOC: DL.ED 01:44
DX: I12.9 Hypertensive chronic kidney disease with stage 1 through stage 4 chronic kidney disease, or unspecified chronic kidney disease (principal); E11.22 Type 2 diabetes mellitus with diabetic chronic kidney disease; N18.4 Chronic kidney disease, stage 4 (severe); C22.8 Malignant neoplasm of liver, primary, unspecified as to type; K92.2 Gastrointestinal hemorrhage, unspecified; E87.1 Hypo-osmolality and hyponatremia; E87.5 Hyperkalemia; E83.41 Hypermagnesemia; D47.3 Essential (hemorrhagic) thrombocythemia; Z79.4 Long term (current) use of insulin
CPT/HCPCS: 36415; 70450; 71010; 80053; 82140; 82150; 82272; 83605; 83690; 85025; 85610; 86850; 86900; 86901; 87040; 93005; 96374; 96375; 99285; C9113; J2765

== ENCOUNTER 2017-12-19 10:48 | Emergency (ER) | payer BC ==
--- NOTE | 2017-12-19 10:51 | EDM.PDOC ---
ED HPI GENERAL MEDICAL PROBLEM - General Stated Complaint: VOMITTING BLOOD Time Seen by Provider: 12/19/17 11:00 Source of Information: Reports: Patient, Family, RN, RN Notes Reviewed - History of Present Illness INITIAL COMMENTS - FREE TEXT/NARRATIVE: Pt presents to the ER with his son. Son states the patient has been a little more confused lately than usual. Pt has a history of liver disease. Son states he was bringing the patient to the clinic for routine blood draw when the patient vomited bloody emesis, moderate amount. Patient has been having frequent bloody noses, and son states has had dark stools for the past few days. Pts. sister states that 1 month ago he had a "spray coating" put in his stomach by GI at [facility] in [place] for bleeding. Onset: Today, Sudden - Related Data Allergies Allergy/AdvReac Type Severity Reaction Status Date / Time contrast dye Allergy Cannot Uncoded 12/19/17 11:05 Remember Home Meds: Home Meds Insulin Aspart [NovoLOG] 180 unit SQ ASDIRECTED 01/23/16 [History] Bumetanide [Bumex] 2 mg PO BID 09/05/17 [History] Lactulose 20 gm PO BID 09/05/17 [History] Midodrine 10 mg PO TIDMEALS 09/05/17 [History] Rifaximin [Xifaxan] 550 mg PO BID 09/05/17 [History] Spironolactone [Aldactone] 25 mg PO .QOD 10/04/17 [History] Glucagon,Human Recombinant [Glucagen] 1 mg SQ ASDIRECTED PRN 11/15/17 [History] Pantoprazole Sodium [Pantoprazole Sodium] 40 mg PO BID 11/15/17 [History] hydrOXYzine HCl [Atarax] 25 mg PO BEDTIME 11/15/17 [History] oxyCODONE 5 mg PO ASDIRECTED PRN 11/15/17 [History] Past Medical History HEENT History: Reports: Hard of Hearing Other HEENT History: seasonal allergies Cardiovascular History: Reports: High Cholesterol, Hypertension Respiratory History: Reports: None Other Respiratory History: lung nodule, ARF w/hypoxia and hypercapnia Gastrointestinal History: Reports: Cirrhosis, GI Bleed, Hiatal Hernia Other Gastrointestinal History: ascites, anasarca Genitourinary History: Reports: Acute Renal Failure, Chronic Renal Insuffiency Other Genitourinary History: dehydration, GI bleed, portal hypertensive gastropathy Musculoskeletal History: Reports: Fracture Neurological History: Reports: Brain Injury, Neuropathy, Diabetic Other Neuro History: encephalopathy Psychiatric History: Reports: Other (See Below) Other Psychiatric History: gets confused at times Endocrine/Metabolic History: Reports: Diabetes, Type II, Obesity/BMI 30+ Hematologic History: Reports: Anemia, Blood Transfusion(s) Other Hematologic History: hyperkalemia, hyponatremia, thrombocytopenia, hyperammonemia Immunologic History: Reports: None Other Immunologic History: fatty liver Oncologic (Cancer) History: Reports: Liver Dermatologic History: Reports: None Other Dermatologic History: eschar of heel - Infectious Disease History Infectious Disease History: Reports: VRE - Past Surgical History HEENT Surgical History: Reports: Tonsillectomy Cardiovascular Surgical History: Reports: None Respiratory Surgical History: Reports: None GI Surgical History: Reports: Abdominal paracentesis Male Surgical History: Reports: None Endocrine Surgical History: Reports: None Neurological Surgical History: Reports: None Musculoskeletal Surgical History: Reports: Carpal Tunnel Oncologic Surgical History: Reports: None Other Oncologic Surgeries/Procedures: Ablation Dermatological Surgical History: Reports: None Social & Family History - Family History Family Medical History: Noncontributory - Tobacco Use Smoking Status *Q: Never Smoker Second Hand Smoke Exposure: No - Caffeine Use Caffeine Use: Reports: None - Alcohol Use Days Per Week of Alcohol Use: 3 Number of Drinks Per Day: 3 Total Drinks Per Week: 9 - Recreational Drug Use Recreational Drug Use: No - Living Situation & Occupation Living situation: Reports: Occupation: Employed ED ROS GENERAL - Review of Systems Review Of Systems: ROS reveals no pertinent complaints other than HPI. ED EXAM, GI/ABD - Physical Exam Exam: See Below Exam Limited By: Altered Mental Status General Appearance: Alert, WD/WN, No Apparent Distress Eyes: Bilateral: Normal Appearance, EOMI Ears: Normal External Exam, Hearing Grossly Normal Nose: Normal Inspection, Other (blood from the nose with blowing) Throat/Mouth: Normal Inspection, Normal Voice, No Airway Compromise Head: Atraumatic, Normocephalic Neck: Normal Inspection, Supple, Non-Tender, Full Range of Motion Respiratory/Chest: No Respiratory Distress, No Accessory Muscle Use, Chest Non- Tender, Rales Cardiovascular: Normal Peripheral Pulses, Regular Rate, Rhythm, No Edema, No Gallop, No JVD, Systolic Murmur GI/Abdominal Exam: Normal Bowel Sounds, Soft, Non-Tender, No Organomegaly, No Distention, No Abnormal Bruit, No Mass (Male) Exam: Deferred Rectal (Males) Exam: Normal Rectal Tone, Heme + Stool Back Exam: Normal Inspection, Full Range of Motion Extremities: Normal Inspection, Normal Range of Motion, Non-Tender, No Pedal Edema, Normal Capillary Refill Neurological: Alert, Oriented, CN II-XII Intact, No Motor/Sensory Deficits, Slow to Respond Psychiatric: Normal Affect, Normal Mood Skin Exam: Warm, Dry, Intact, No Rash, Pallor Lymphatic: No Adenopathy Course - Vital Signs Last Recorded V/S: Last Vital Signs Temp 98.9 F 12/19/17 12:43 Pulse 70 12/19/17 12:43 Resp 18 12/19/17 12:43 BP 129/51 L 12/19/17 12:43 Pulse Ox 100 12/19/17 12:43 - Orders/Labs/Meds Orders: Active Orders 24 hr Category Date Time Status RED BLOOD CELLS LP [BBK] Stat Lab 12/19/17 11:18 Results TYPE AND SCREEN [BBK] Stat Lab 12/19/17 11:18 Results Octreotide [SandoSTATIN] 500 mcg Med 12/19/17 12:30 Active Sodium Chloride 0.9% [Normal Saline] 250 ml IV ASDIRECTED Pantoprazole [ProTONIX IV] 40 mg Med 12/19/17 11:26 Active Sodium Chloride 0.9% [Normal Saline] 100 ml IV .CONTINUOS Transfuse RBC [Transfuse Red Blood Cells] [COMM] Stat Oth 12/19/17 12:44 Ordered Medication Orders Pantoprazole Sodium 40 mg/ (Sodium Chloride) 100 mls @ 20 mls/hr IV .CONTINUOS JESSIE Last Admin: 12/19/17 12:25 Dose: 20 mls/hr Octreotide Acetate 500 mcg/ (Sodium Chloride) 255 mls @ 12.5 mls/hr IV ASDIRECTED JESSIE Last Admin: 12/19/17 12:37 Dose: 12.5 mls/hr Labs: Laboratory Tests 12/19/17 12/19/17 12/19/17 Range/Units 11:18 11:20 11:20 WBC 4.3 L (5.0-10.0) 10^3/uL RBC 1.93 L (4.6-6.2) 10^6/uL Hgb 6.5 L* (14.0-18.0) g/dL Hct 19.2 L* (40.0-54.0) % MCV 99.5 (80-100) fL MCH 33.7 (27.0-34.0) pg MCHC 33.9 (33.0-35.0) g/dL Plt Count 64 L (150-450) 10^3/uL Neut % (Auto) 61.3 (42.2-75.2) % Lymph % (Auto) 22.5 (20.5-50.1) % [place] % (Auto) 13.1 H (2-8) % Eos % (Auto) 2.6 (1.0-3.0) % Baso % (Auto) 0.5 (0.0-1.0) % Sodium 131 L (135-145) mmol/L Potassium 4.3 (3.6-5.0) mmol/L Chloride 95 L (101-111) mmol/L Carbon Dioxide 26.0 (21.0-31.0) mmol/L Anion Gap 14.3 BUN 58 H (7-18) mg/dL Creatinine 2.1 H (0.6-1.3) mg/dL Est Cr Clr Drug Dosing 42.97 mL/min Estimated GFR (MDRD) 33 BUN/Creatinine Ratio 27.61 Glucose 229 H (74-105) mg/dL Calcium 8.6 (8.4-10.2) mg/dl Total Bilirubin 1.5 H (0.2-1.0) mg/dL AST 49 H (10-42) IU/L ALT 24 (10-60) IU/L Alkaline Phosphatase 93 (42-121) IU/L Ammonia (11-35) umol/L Total Protein 6.7 (6.7-8.2) g/dl Albumin 2.5 L (3.2-5.5) g/dl Globulin 4.2 Albumin/Globulin Ratio 0.60 Urine Color (YELLOW) Urine Appearance (CLEAR) Urine pH (5.0-9.0) Ur Specific [place] (1.005-1.030) Urine Protein (NEGATIVE) Urine Glucose (UA) (NEGATIVE) Urine Ketones (NEGATIVE) Urine Occult Blood (NEGATIVE) Urine Nitrite (NEGATIVE) Urine Bilirubin (NEGATIVE) Urine Urobilinogen (0.2-1.0) mg/dL Ur Leukocyte Esterase (NEGATIVE) Urine RBC /HPF Urine WBC (0-5/HPF) /HPF Ur Epithelial Cells /HPF Urine Bacteria (0-FEW/HPF) /HPF Blood Type A POSITIVE Gel Antibody Screen Negative Crossmatch See Detail 12/19/17 12/19/17 Range/Units 11:20 12:22 WBC (5.0-10.0) 10^3/uL RBC (4.6-6.2) 10^6/uL Hgb (14.0-18.0) g/dL Hct (40.0-54.0) % MCV (80-100) fL MCH (27.0-34.0) pg MCHC (33.0-35.0) g/dL Plt Count (150-450) 10^3/uL Neut % (Auto) (42.2-75.2) % Lymph % (Auto) (20.5-50.1) % [place] % (Auto) (2-8) % Eos % (Auto) (1.0-3.0) % Baso % (Auto) (0.0-1.0) % Sodium (135-145) mmol/L Potassium (3.6-5.0) mmol/L Chloride (101-111) mmol/L Carbon Dioxide (21.0-31.0) mmol/L Anion Gap BUN (7-18) mg/dL Creatinine (0.6-1.3) mg/dL Est Cr Clr Drug Dosing mL/min Estimated GFR (MDRD) BUN/Creatinine Ratio Glucose (74-105) mg/dL Calcium (8.4-10.2) mg/dl Total Bilirubin (0.2-1.0) mg/dL AST (10-42) IU/L ALT (10-60) IU/L Alkaline Phosphatase (42-121) IU/L Ammonia 121 H (11-35) umol/L Total Protein (6.7-8.2) g/dl Albumin (3.2-5.5) g/dl Globulin Albumin/Globulin Ratio Urine Color Yellow (YELLOW) Urine Appearance Clear (CLEAR) Urine pH 6.5 (5.0-9.0) Ur Specific [place] 1.015 (1.005-1.030) Urine Protein Negative (NEGATIVE) Urine Glucose (UA) Negative (NEGATIVE) Urine Ketones Negative (NEGATIVE) Urine Occult Blood Moderate H (NEGATIVE) Urine Nitrite Negative (NEGATIVE) Urine Bilirubin Negative (NEGATIVE) Urine Urobilinogen 0.2 (0.2-1.0) mg/dL Ur Leukocyte Esterase Negative (NEGATIVE) Urine RBC 20-30 H /HPF Urine WBC 0-5 (0-5/HPF) /HPF Ur Epithelial Cells Few /HPF Urine Bacteria Rare (0-FEW/HPF) /HPF Blood Type Gel Antibody Screen Crossmatch Meds: Medications Generic Name Dose Route Start Last Admin Trade Name Freq PRN Reason Stop Dose Admin Pantoprazole Sodium 40 mg/ 100 mls @ 20 mls/hr 12/19/17 11:26 12/19/17 12:25 Sodium Chloride IV 20 mls/hr .CONTINUOS JESSIE Administration Octreotide Acetate 500 mcg/ 255 mls @ 12.5 mls/hr 12/19/17 12:30 12/19/17 12: 37 Sodium Chloride IV 12.5 mls/hr ASDIRECTED JESSIE Administration Discontinued Medications Generic Name Dose Route Start Last Admin Trade Name Freq PRN Reason Stop Dose Admin Octreotide Acetate 50 mcg 12/19/17 12:15 12/19/17 12:29 Sandostatin IVPUSH 12/19/17 12:16 50 mcg ONETIME ONE Administration Pantoprazole Sodium 80 mg 12/19/17 11:24 12/19/17 12:02 Protonix Iv IVPUSH 12/19/17 11:25 80 mg .BOLUS ONE Administration Departure - Departure Time of Disposition: 13:14 Disposition: DC/Tfer to Acute Hospital 02 Condition: Fair, Critical Clinical Impression: Guaiac positive stools, Liver disease GI bleed Qualifiers: GI bleed type/associated pathology: unspecified gastrointestinal hemorrhage type Qualified Code(s): K92.2 - Gastrointestinal hemorrhage, unspecified - Discharge Information Referrals: Edward Baugh MD [Primary Care Provider] - Forms: ED Department Discharge, Interfacility Transfer EMTALA - My Orders Last 24 Hours: My Active Orders 12/19/17 11:18 RED BLOOD CELLS LP [BBK] Stat TYPE AND SCREEN [BBK] Stat 12/19/17 11:26 Pantoprazole [ProTONIX IV] 40 mg Sodium Chloride 0.9% [Normal Saline] 100 ml IV .CONTINUOS 12/19/17 12:30 Octreotide [SandoSTATIN] 500 mcg Sodium Chloride 0.9% [Normal Saline] 250 ml IV ASDIRECTED 12/19/17 12:44 Transfuse RBC [Transfuse Red Blood Cells] [COMM] Stat - Assessment/Plan Last 24 Hours: My Active Orders 12/19/17 11:18 RED BLOOD CELLS LP [BBK] Stat TYPE AND SCREEN [BBK] Stat 12/19/17 11:26 Pantoprazole [ProTONIX IV] 40 mg Sodium Chloride 0.9% [Normal Saline] 100 ml IV .CONTINUOS 12/19/17 12:30 Octreotide [SandoSTATIN] 500 mcg Sodium Chloride 0.9% [Normal Saline] 250 ml IV ASDIRECTED 12/19/17 12:44 Transfuse RBC [Transfuse Red Blood Cells] [COMM] Stat
[2017-12-19] MEDS ORDERED: Pantoprazole 40 MG Vial IVPUSH ONE (11:24)
[2017-12-19] MEDS ORDERED: Pantoprazole 40 MG in Sodium Chloride 0.9% 100 ML IV SCH (11:26)
[2017-12-19] MEDS ORDERED: Adenosine 12 MG/4 ML SDV IVPUSH ONE (11:36)
[2017-12-19] MEDS ORDERED: Octreotide 100 MCG/ML SDV IVPUSH ONE (12:15)
[2017-12-19] MEDS ORDERED: Octreotide 500 MCG in Sodium Chloride 0.9% 250 ML IV SCH (12:30)
[2017-12-19 13:45] VITALS: BP 105/47
== END 2017-12-19 13:33 ==
LOC: DL.ED 10:48
DX: K92.2 Gastrointestinal hemorrhage, unspecified (principal); K76.9 Liver disease, unspecified; I12.9 Hypertensive chronic kidney disease with stage 1 through stage 4 chronic kidney disease, or unspecified chronic kidney disease; E11.22 Type 2 diabetes mellitus with diabetic chronic kidney disease; N18.9 Chronic kidney disease, unspecified; E11.40 Type 2 diabetes mellitus with diabetic neuropathy, unspecified; E78.00 Pure hypercholesterolemia, unspecified; Z79.4 Long term (current) use of insulin; Z79.899 Other long term (current) drug therapy; Z91.041 Radiographic dye allergy status
CPT/HCPCS: 36415; 36430; 80053; 81001; 82140; 82272; 85025; 86850; 86900; 86901; 86920; 86922; 96365; 96368; 96375; 96376; 99285; C9113; J2354; J7050; P9016

== ENCOUNTER 2018-01-17 13:44 | Emergency (ER) | payer BC ==
--- NOTE | 2018-01-17 14:18 | EDM.PDOC ---
ED HPI GENERAL MEDICAL PROBLEM - General Chief Complaint: Abdominal Pain Stated Complaint: ARANZA PAIN [phone] Time Seen by Provider: 01/17/18 14:13 Source of Information: Reports: Patient History Limitations: Reports: No Limitations - History of Present Illness INITIAL COMMENTS - FREE TEXT/NARRATIVE: Patient has liver cancer along with hepatorenal syndrome. He has frequent gastric bleeds requiring hospitalization and cauterization. 2 days ago was hospitalized and underwent EGD and paracentesis. Patient noted abdominal pain that's progressively gotten worse. He has not noticed how much jaundice has transpired over the past couple days. He notes abdominal fullness and generalized upper abdominal pain. No vomiting. No bloody stools. Denies urinary symptoms. No complaints of headache or dizziness. Onset: Gradual Duration: Day(s): Location: Reports: Abdomen Quality: Reports: Ache, Dull, Pressure Severity: Moderate Improves with: Reports: None Worsens with: Reports: Movement Associated Symptoms: Reports: Loss of Appetite, Malaise, Weakness Upper Abdominal Pain Score (Numeric/FACES): 9 - Related Data Allergies Allergy/AdvReac Type Severity Reaction Status Date / Time contrast dye Allergy Cannot Uncoded 01/17/18 13:55 Remember Home Meds: Home Meds Insulin Aspart [NovoLOG] 180 unit SQ ASDIRECTED 01/23/16 [History] Bumetanide [Bumex] 1 mg PO BID 09/05/17 [History] Midodrine 10 mg PO TIDMEALS 09/05/17 [History] Rifaximin [Xifaxan] 550 mg PO BID 09/05/17 [History] Spironolactone [Aldactone] 25 mg PO .QOD 10/04/17 [History] Glucagon,Human Recombinant [Glucagen] 1 mg SQ ASDIRECTED PRN 11/15/17 [History] Pantoprazole Sodium [Pantoprazole Sodium] 40 mg PO BID 11/15/17 [History] hydrOXYzine HCl [Atarax] 25 mg PO BEDTIME 11/15/17 [History] Insulin Glarg,Human.Rec.Analog [Lantus Solostar] 16 units SUBCUT QPM 01/17/18 [ History] Insulin Glarg,Human.Rec.Analog [Lantus] 36 units SUBCUT QAM 01/17/18 [History] Nepafenac [Nevanac 0.1% Ophth Soln] 1 drop EYERT QID 01/17/18 [History] Past Medical History HEENT History: Reports: Hard of Hearing Other HEENT History: seasonal allergies Cardiovascular History: Reports: High Cholesterol, Hypertension Respiratory History: Reports: None Other Respiratory History: lung nodule, ARF w/hypoxia and hypercapnia Gastrointestinal History: Reports: Cirrhosis, GI Bleed, Hiatal Hernia Other Gastrointestinal History: ascites, anasarca Genitourinary History: Reports: Acute Renal Failure, Chronic Renal Insuffiency Other Genitourinary History: dehydration, GI bleed, portal hypertensive gastropathy Musculoskeletal History: Reports: Fracture Neurological History: Reports: Brain Injury, Neuropathy, Diabetic Other Neuro History: encephalopathy Psychiatric History: Reports: Other (See Below) Other Psychiatric History: gets confused at times Endocrine/Metabolic History: Reports: Diabetes, Type II, Obesity/BMI 30+ Hematologic History: Reports: Anemia, Blood Transfusion(s) Other Hematologic History: hyperkalemia, hyponatremia, thrombocytopenia, hyperammonemia Immunologic History: Reports: None Other Immunologic History: fatty liver Oncologic (Cancer) History: Reports: Liver Dermatologic History: Reports: None Other Dermatologic History: eschar of heel - Infectious Disease History Infectious Disease History: Reports: VRE - Past Surgical History HEENT Surgical History: Reports: Tonsillectomy Cardiovascular Surgical History: Reports: None Respiratory Surgical History: Reports: None GI Surgical History: Reports: Abdominal paracentesis Male Surgical History: Reports: None Endocrine Surgical History: Reports: None Neurological Surgical History: Reports: None Musculoskeletal Surgical History: Reports: Carpal Tunnel Oncologic Surgical History: Reports: None Other Oncologic Surgeries/Procedures: Ablation Dermatological Surgical History: Reports: None Social & Family History - Family History Family Medical History: Noncontributory - Tobacco Use Smoking Status *Q: Never Smoker Second Hand Smoke Exposure: No - Caffeine Use Caffeine Use: Reports: None - Alcohol Use Days Per Week of Alcohol Use: 3 Number of Drinks Per Day: 3 Total Drinks Per Week: 9 - Recreational Drug Use Recreational Drug Use: No - Living Situation & Occupation Living situation: Reports: Occupation: Employed ED ROS GENERAL - Review of Systems Review Of Systems: See Below Constitutional: Reports: Malaise, Weakness, Decreased Appetite HEENT: Reports: No Symptoms Respiratory: Denies: Shortness of Breath, Cough Cardiovascular: Reports: Dyspnea on Exertion. Denies: Chest Pain, Orthopnea, Syncope Endocrine: Reports: Fatigue GI/Abdominal: Reports: Abdominal Pain, Distension, Nausea. Denies: Stool Incontinence, Vomiting : Reports: No Symptoms Musculoskeletal: Reports: Joint Pain, Muscle Pain Skin: Reports: Jaundice Neurological: Denies: Confusion, Dizziness, Headache, Numbness Psychiatric: Reports: No Symptoms Hematologic/Lymphatic: Reports: Anemia Immunologic: Reports: No Symptoms ED EXAM, GI/ABD - Physical Exam Exam: See Below Exam Limited By: No Limitations General Appearance: Alert, No Apparent Distress Nose: Normal Inspection Throat/Mouth: Normal Oropharynx Head: Atraumatic, Normocephalic Neck: Non-Tender Respiratory/Chest: Lungs Clear Cardiovascular: Tachycardia GI/Abdominal Exam: Distended, Abnormal Bowel Sounds, Other (Tympanitic) Back Exam: No: CVA Tenderness (L), CVA Tenderness (R) Extremities: Pedal Edema Neurological: Alert, Oriented, CN II-XII Intact Psychiatric: Normal Affect Skin Exam: Jaundice Course - Vital Signs Last Recorded V/S: Last Vital Signs Temp 97.2 F 01/17/18 14:04 Pulse 71 01/17/18 14:04 Resp 18 01/17/18 14:04 BP 139/33 L 01/17/18 14:04 Pulse Ox 100 01/17/18 14:04 - Orders/Labs/Meds Orders: Active Orders 24 hr Category Date Time Status Peripheral IV Care [RC] . DIRECTED Care 01/17/18 14:22 Active Sodium Chloride 0.9% [Saline Flush] Med 01/17/18 14:21 Active 10 ml FLUSH ASDIRECTED PRN Peripheral IV Insertion Adult [OM.PC] Routine Oth 01/17/18 14:21 Ordered Medication Orders Sodium Chloride (Saline Flush) 10 ml FLUSH ASDIRECTED PRN PRN Reason: Keep Vein Open Last Admin: 01/17/18 14:34 Dose: 10 ml Labs: Laboratory Tests 01/17/18 Range/Units 14:46 Ammonia 67 H (11-35) umol/L Meds: Medications Generic Name Dose Route Start Last Admin Trade Name Freq PRN Reason Stop Dose Admin Sodium Chloride 10 ml 01/17/18 14:21 01/17/18 14:34 Saline Flush FLUSH 10 ml ASDIRECTED PRN Administration Keep Vein Open Discontinued Medications Generic Name Dose Route Start Last Admin Trade Name Freq PRN Reason Stop Dose Admin Morphine Sulfate 1 mg 01/17/18 14:21 01/17/18 14:33 Morphine IVPUSH 01/17/18 14:22 1 mg ONETIME ONE Administration - Re-Assessments/Exams Free Text/Narrative Re-Assessment/Exam: Patient's disposition was discussed with hospitalist at [facility]. They are in agreement for transfer to higher level of care. Arrangements are being made 01/17/18 16:34 Departure - Departure Time of Disposition: 16:32 Disposition: DC/Tfer to Acute Hospital 02 Condition: Fair Clinical Impression: CKD (chronic kidney disease) stage 4, GFR 15-29 ml/min, Hepatorenal syndrome, Thrombocytopenia Ascites Qualifiers: Ascites type: other type Qualified Code(s): R18.8 - Other ascites Anemia Qualifiers: Anemia type: other cause Other causes of anemia: chronic disease, other Qualified Code(s): D63.8 - Anemia in other chronic diseases classified elsewhere Liver cancer Qualifiers: Liver malignancy type: unspecified primary liver malignancy Qualified Code(s): C22.8 - Malignant neoplasm of liver, primary, unspecified as to type - Discharge Information Referrals: Edward Baugh MD [Primary Care Provider] - Forms: ED Department Discharge Additional Instructions: Patient is transferred to higher level of care. patient is transferred by ground ambulance. - My Orders Last 24 Hours: My Active Orders 01/17/18 14:21 Sodium Chloride 0.9% [Saline Flush] 10 ml FLUSH ASDIRECTED PRN Peripheral IV Insertion Adult [OM.PC] Routine 01/17/18 14:22 Peripheral IV Care [RC] . DIRECTED - Assessment/Plan Last 24 Hours: My Active Orders 01/17/18 14:21 Sodium Chloride 0.9% [Saline Flush] 10 ml FLUSH ASDIRECTED PRN Peripheral IV Insertion Adult [OM.PC] Routine 01/17/18 14:22 Peripheral IV Care [RC] . DIRECTED
[2018-01-17] MEDS ORDERED: Morphine 2 MG/ML Syringe IVPUSH ONE (14:21)
[2018-01-17] MEDS ORDERED: Sodium Chloride 0.9% 10 ML Syringe FLUSH PRN (14:21)
--- NOTE | 2018-01-17 15:16 | PCM.PRNOTE ---
- Free Text/Narrative Note: Consulted by ED to insert an IV on a patient who has had multiple attempts by RN. Upon entering room, pt is lying on a stretcher but in abd pain. A tourniquet was applied to the right forearm. The right hand was cleaned with alcohol. Using a 20 gauge angiocath, an IV was inserted into the right posterior hand on first attempt. Excellent blood return. IV flushes without difficulty. IV was covered with tegaderm and secured with tape. RN was notified.
--- NOTE | 2018-01-17 15:19 | CR ---
Clinical history: 52-year-old diabetic male with clinical "ascites" and small left pleural effusion r eported and November 2017. Interpretation: Abnormal. Densely calcified common/internal/external iliac arteries. Mid lumbar disc disease and hypertrophic arthritic changes of the lower thoracic and lumbar spine. No rmal SI and hip joints. Gas outlining the distended esophagus and chronic pleural effusion with underlying atelectasis or fib rosis obscuring the left hemidiaphragm relatively unchanged since 15 November 2017 exam. Large volume of stool concentrated in the hepatic flexure colon and adjacent large calcified gallston e RUQ. No sign of foreign body, abdominal soft tissue mass or mechanical bowel obstruction. CONCLUSION: Chronic abnormality left lung base. Large gallstone. Obstipation. No current signs of mec hanical bowel obstruction.
--- NOTE | 2018-01-17 16:24 | CT ---
Clinical history: 52-year-old 259 pound hypertensive and diabetic male with abdominal pain who was no angelo on January 2016 exam (when he weighed 356 pound to have "ascites". Abnormal effusion and/or atel ectasis left lung base on recent CXR. Scan technique: I am acquisition of data from the abdomen and pelvis obtained without oral or IV cont rast while patient was lying supine on the Siemens multi slice CT scanner [place], [place]. All data archived in the PACS system for storage, reformatting and study. Interpretation: Abnormal. 1. Huge intraperitoneal ascitic fluid accumulation as noted back on CT exam January 2016...ascites. 2. *Large new dependent subpulmonic pleural effusion (sympathetic?) on the left with underlying lower lobe atelectasis or infiltrate. 3. Small scarred liver and large spleen. Epigastric varices. Edema in the soft tissues (anasarca). 4. Solitary large gallstone in the center of the distended gallbladder RUQ. 5. No new evidence discrete pelvic or intra-abdominal mass lesion. No mechanical bowel obstruction. N o free intraperitoneal air. 6. Extensive small vessel calcifications but normal caliber aortoiliac vessels i.e. no sign of aneury sm or dissection. 7. Osteopenia, multilevel disc disease and chronic hypertrophic arthritic changes of the spine. No fr acture or dislocation. CONCLUSION: Ascites. Left lower lobe infiltrate and ipsilateral effusion. Large gallstone. Hepatocell ular disease.
[2018-01-17 16:29] VITALS: BP 115/34
== END 2018-01-17 16:50 ==
LOC: DL.ED 13:44
DX: I12.9 Hypertensive chronic kidney disease with stage 1 through stage 4 chronic kidney disease, or unspecified chronic kidney disease (principal); D63.8 Anemia in other chronic diseases classified elsewhere; C22.8 Malignant neoplasm of liver, primary, unspecified as to type; E11.22 Type 2 diabetes mellitus with diabetic chronic kidney disease; E11.40 Type 2 diabetes mellitus with diabetic neuropathy, unspecified; N18.4 Chronic kidney disease, stage 4 (severe); E78.00 Pure hypercholesterolemia, unspecified; Z91.041 Radiographic dye allergy status; Z79.4 Long term (current) use of insulin
CPT/HCPCS: 36415; 74019; 74176; 82140; 96374; 99285; J2270; J7050

== ENCOUNTER 2021-04-08 12:19 | Emergency (ER) | payer MEDICARE, OTHER ==
[2021-04-08 12:49] VITALS: BP 112/64; PULSE 72
--- NOTE | 2021-04-08 13:27 | EDM.PDOC ---
ED HPI GENERAL MEDICAL PROBLEM - General Chief Complaint: Upper Extremity Injury/Pain Stated Complaint: LEFT HAND MIDDLE FINGER ??PAIN Time Seen by Provider: 04/08/21 12:55 Source of Information: Reports: Patient, Old Records, RN, RN Notes Reviewed, Other ([facility]) History Limitations: Reports: No Limitations - History of Present Illness INITIAL COMMENTS - FREE TEXT/NARRATIVE: Pt states he was at [facility] to see Dr. Jacobs on April 04 and he believes she forgot to write his oxycodone prescription. Pt had a finger amputation and has chronic tendinitis pain in the left hand. Pt asked that I call [facility] for verification as he does not want any problem with the relationship with his specialist. Pt denies any new complaints or injury(s). Duration: Chronic, Constant Location: Reports: Upper Extremity, Left Quality: Reports: Same as Previous Episode Severity: Severe Right Hand Pain Score (Numeric/FACES): 9 - Related Data Allergies Allergy/AdvReac Type Severity Reaction Status Date / Time contrast dye Allergy Cannot Uncoded 04/08/21 12:47 Remember Home Meds: Home Meds Insulin Aspart [NovoLOG] 180 unit SQ ASDIRECTED 01/23/16 [History] Bumetanide [Bumex] 1 mg PO BID 09/05/17 [History] Midodrine 10 mg PO TIDMEALS 09/05/17 [History] Rifaximin [Xifaxan] 550 mg PO BID 09/05/17 [History] Spironolactone [Aldactone] 25 mg PO .QOD 10/04/17 [History] Glucagon,Human Recombinant [Glucagen] 1 mg SQ ASDIRECTED PRN 11/15/17 [History] Pantoprazole Sodium 40 mg PO BID 11/15/17 [History] hydrOXYzine HCl [Atarax] 25 mg PO BEDTIME 11/15/17 [History] Insulin Glarg,Human.Rec.Analog [Lantus Solostar] 16 units SUBCUT QPM 01/17/18 [History] Insulin Glarg,Human.Rec.Analog [Lantus] 36 units SUBCUT QAM 01/17/18 [History] Nepafenac [Nevanac 0.1% Ophth Soln] 1 drop EYERT QID 01/17/18 [History] Past Medical History HEENT History: Reports: Hard of Hearing Other HEENT History: seasonal allergies Cardiovascular History: Reports: High Cholesterol, Hypertension Respiratory History: Reports: None Other Respiratory History: lung nodule, ARF w/hypoxia and hypercapnia Gastrointestinal History: Reports: Cirrhosis, GI Bleed, Hiatal Hernia Other Gastrointestinal History: ascites, anasarca Genitourinary History: Reports: Acute Renal Failure, Chronic Renal Insuffiency Other Genitourinary History: dehydration, GI bleed, portal hypertensive gastropathy Musculoskeletal History: Reports: Fracture Neurological History: Reports: Brain Injury, Neuropathy, Diabetic Other Neuro History: encephalopathy Psychiatric History: Reports: Other (See Below) Other Psychiatric History: gets confused at times Endocrine/Metabolic History: Reports: Diabetes, Type II, Obesity/BMI 30+ Hematologic History: Reports: Anemia, Blood Transfusion(s) Other Hematologic History: hyperkalemia, hyponatremia, thrombocytopenia, hyperammonemia Immunologic History: Reports: None Other Immunologic History: fatty liver Oncologic (Cancer) History: Reports: Liver Dermatologic History: Reports: None Other Dermatologic History: eschar of heel. Stepped on piece of metal - Infectious Disease History Infectious Disease History: Reports: Chicken Pox, Measles, Mumps, Rubella - Past Surgical History HEENT Surgical History: Reports: Tonsillectomy Cardiovascular Surgical History: Reports: None Respiratory Surgical History: Reports: None GI Surgical History: Reports: Abdominal paracentesis Other GI Surgeries/Procedures: liver and kidney transplant Male Surgical History: Reports: None Endocrine Surgical History: Reports: None Neurological Surgical History: Reports: None Musculoskeletal Surgical History: Reports: Carpal Tunnel Oncologic Surgical History: Reports: None Other Oncologic Surgeries/Procedures: Ablation Dermatological Surgical History: Reports: Other (See Below) Social & Family History - Family History Family Medical History: No Pertinent Family History - Tobacco Use Tobacco Use Status *Q: Never Tobacco User - Caffeine Use Caffeine Use: Reports: None - Recreational Drug Use Recreational Drug Use: No - Living Situation & Occupation Living situation: Reports: Occupation: Employed Review of Systems - Review of Systems Review Of Systems: Comprehensive ROS is negative, except as noted in HPI. ED EXAM, GENERAL - Physical Exam Exam: See Below Exam Limited By: No Limitations General Appearance: Alert, No Apparent Distress Throat/Mouth: Normal Voice, No Airway Compromise Head: Atraumatic, Normocephalic Respiratory/Chest: No Respiratory Distress Cardiovascular: Normal Peripheral Pulses Extremities: Normal Capillary Refill, Other (Surgical dressing not removed from left hand for exam) Neurological: Alert, Oriented, No Motor/Sensory Deficits Psychiatric: Normal Mood Skin Exam: Warm, Dry, Normal Color Course - Vital Signs Last Recorded V/S: Last Vital Signs Temp 97.2 F 04/08/21 12:47 Pulse 72 04/08/21 12:47 Resp 18 04/08/21 12:47 BP 112/64 04/08/21 12:47 Pulse Ox 100 04/08/21 12:47 - Re-Assessments/Exams Free Text/Narrative Re-Assessment/Exam: 04/08/21 13:33 I called for prescription and medical record verification via [facility]. The pt was seen in clinic as he stated and actually a prescription was electronically sent for the pt to [facility] in [place]. However, the pt states he was expecting a paper Rx and did not go to [facility]. An apparent miscommunication? Today and tomorrow [facility] is closed, therefore 6 tablet Rx will be given to the pt and he is cautioned that no further controlled medication Rx's will be issued from the ER. Departure - Departure Time of Disposition: 13:23 Disposition: Home, Self-Care 01 Condition: Good Clinical Impression: Medication refill - Discharge Information *PRESCRIPTION DRUG MONITORING PROGRAM REVIEWED*: No *COPY OF PRESCRIPTION DRUG MONITORING REPORT IN PATIENT LARRY: No Instructions: Musculoskeletal Pain Forms: ED Department Discharge Additional Instructions: [facility] record indicates that your oxycodone prescription was electronically sent to [facility] on the day of your last appointment. Check with [facility] Saturday, April 10. Follow up with your doctor for medication management. Sepsis Event Note (ED) - Evaluation Sepsis Screening Result: No Definite Risk - Focused Exam Vital Signs: Vital Signs Temp Pulse Resp BP Pulse Ox 04/08/21 12:47 97.2 F 72 18 112/64 100
== END 2021-04-08 13:32 | disposition home or self-care (01) ==
LOC: DL.ED 12:19
DX: M79.642 Pain in left hand (principal); Z76.0 Encounter for issue of repeat prescription; I12.9 Hypertensive chronic kidney disease with stage 1 through stage 4 chronic kidney disease, or unspecified chronic kidney disease; N18.9 Chronic kidney disease, unspecified; E11.22 Type 2 diabetes mellitus with diabetic chronic kidney disease; E11.40 Type 2 diabetes mellitus with diabetic neuropathy, unspecified; E66.9 Obesity, unspecified; Z68.41 Body mass index [BMI] 40.0-44.9, adult; Z91.041 Radiographic dye allergy status; Z79.4 Long term (current) use of insulin; Z79.899 Other long term (current) drug therapy
CPT/HCPCS: 99282; 99283